=== PATIENT | male | born 1985 | race Caucasian/White ===

== ENCOUNTER 2019-03-09 20:37 | Emergency (ER) | payer OTHER ==
[2019-03-09] MEDS ORDERED: KETOROLAC TROMETHAMINE 30 MG/ML SOL IV ONE (21:13)
[2019-03-09] MEDS ORDERED: SODIUM CHLORIDE 0.9% 1000ML 1,000 ML IV ONE (21:13)
[2019-03-09] MEDS ORDERED: ONDANSETRON HCL 4 MG/2 ML SOL IV ONE (21:13)
[2019-03-09] MEDS ORDERED: KETOROLAC TROMETHAMINE 30 MG/ML SOL ONE (21:21)
[2019-03-09] MEDS ORDERED: ONDANSETRON HCL 4 MG/2 ML SOL ONE (21:21)
[2019-03-09 21:44] LABS: BASOPHILS % (AUTO) 1 % (0-3); EOSINOPHILS % (AUTO) 2 % (0-9); HEMATOCRIT 37 % (39-53); HEMOGLOBIN 12.5 gm/dl (13.5-17.7); LYMPHOCYTES % (AUTO) 20.1 % (10-50); MEAN CORPUSCULAR HEMOGLOBIN 29.9 pg (27.0-32.0); MEAN CORPUSCULAR VOLUME 88 fL (80-100); MONOCYTES % (AUTO) 9.7 % (0-12); NEUTROPHILS % (AUTO) 66.7 % (37-80)
[2019-03-09 21:56] LABS: ALBUMIN 2.9 gm/dl (3.4-5.0); BILIRUBIN,TOTAL 0.3 mg/dl (0.2-1.0); CALCIUM 7.9 mg/dl (8.5-10.1); CARBON DIOXIDE 27.4 mEq/L (21-32); CREATININE 0.9 mg/dl (0.80-1.30); POTASSIUM 3.3 mMol/L (3.5-5.1); TOTAL PROTEIN 7.4 gm/dl (6.4-8.2)
[2019-03-09 22:16] LABS: APPEARANCE,URINE Cloudy; BILIRUBIN,URINE NEGATIVE (NEGATIVE); COLOR,URINE Yellow; GLUCOSE, URINE (UA) NEGATIVE (NEGATIVE); KETONES,URINE NEGATIVE (NEGATIVE); LEUKOCYTE ESTERASE ,URINE 2+ (NEGATIVE); NITRATE,URINE POSITIVE (NEGATIVE); OCCULT BLOOD,URINE TRACE INTACT (NEG-TRACE)
[2019-03-09] MEDS ORDERED: POTASSIUM CHLORIDE 10 MEQ TER PO ONE (22:28)
[2019-03-09 22:36] LABS: BACTERIA 3+ (< 1+); CRYSTALS NEGATIVE (0-3 AVE/HPF); EPITHELIAL CELLS 0-2 (SQUAMOUS); RBC,URINE 0-5 (0-3AV/HPF); WBC,URINE 80-100 (0-5AV/HPF)
[2019-03-09] MEDS ORDERED: POTASSIUM CHLORIDE 10 MEQ TER ONE ×2 (22:41→22:42)
[2019-03-09 22:52] VITALS: RESP 18
[2019-03-09 23:32] VITALS: TEMP 97.9
[2019-03-09 23:47] VITALS: BP 156/97; PULSE 98; O2SAT 99
== END 2019-03-09 23:05 | disposition home or self-care (01) | DRG 103 ==
LOC: ED 20:37
DX: G44.309 Post-traumatic headache, unspecified, not intractable (principal); N30.00 Acute cystitis without hematuria; F07.81 Postconcussional syndrome; E87.6 Hypokalemia; R42 Dizziness and giddiness; E11.9 Type 2 diabetes mellitus without complications; W19.XXXA Unspecified fall, initial encounter
CPT/HCPCS: 70450; 80053; 81001; 85025; 87077; 87088; 87186; 93005; 96365; 96374; 96375; 99284; 99285; J1885; J2405; A9270-GY

== ENCOUNTER 2019-06-10 19:32 | Emergency (ER) | payer OTHER ==
[2019-06-10] MEDS ORDERED: SODIUM CHLORIDE 0.9% 1000ML 1,000 ML IV ONE ×2 (19:42→21:29)
[2019-06-10] MEDS ORDERED: PANTOPRAZOLE SODIUM 40 MG/10 ML PDS IV ONE (19:43)
[2019-06-10] MEDS ORDERED: ONDANSETRON HCL 4 MG/2 ML SOL IV ONE (19:43)
[2019-06-10] MEDS ORDERED: PANTOPRAZOLE SODIUM 40 MG/10 ML PDS ONE (19:52)
[2019-06-10] MEDS ORDERED: ONDANSETRON HCL 4 MG/2 ML SOL ONE (19:52)
[2019-06-10] MEDS: SODIUM CHLORIDE 0.9% FLUSH 10 ML SOL IV PRN ×2 (20:20→23:46)
[2019-06-10] MEDS ORDERED: ACETAMINOPHEN 500 MG 500 MG TAB PO ONE (20:23)
[2019-06-10] MEDS ORDERED: ACETAMINOPHEN 500 MG 500 MG TAB ONE (20:23)
[2019-06-10 20:37] LABS: BASOPHILS % (AUTO) 1 % (0-3); EOSINOPHILS % (AUTO) 0 % (0-9); HEMATOCRIT 37 % (39-53); HEMOGLOBIN 12.6 gm/dl (13.5-17.7); LYMPHOCYTES % (AUTO) 10.6 % (10-50); MEAN CORPUSCULAR HEMOGLOBIN 29.3 pg (27.0-32.0); MEAN CORPUSCULAR HGB CONC 33.9 gm/dl (32.0-36.0); MEAN CORPUSCULAR VOLUME 86 fL (80-100); MONOCYTES % (AUTO) 5.8 % (0-12); NEUTROPHILS % (AUTO) 82.6 % (37-80)
[2019-06-10 20:40] LABS: LACTIC ACID 1.7 mMol/L (0.0-2.0)
[2019-06-10 20:50] LABS: ALBUMIN 3.1 gm/dl (3.4-5.0); CALCIUM 8.4 mg/dl (8.5-10.1); CARBON DIOXIDE 24.8 mEq/L (21-32); CREATININE 0.96 mg/dl (0.80-1.30); POTASSIUM 3.7 mMol/L (3.5-5.1); TOTAL PROTEIN 7.2 gm/dl (6.4-8.2)
[2019-06-10] MEDS ORDERED: MORPHINE SULFATE 10 MG/ML SOL IV ONE ×2 (20:56→21:57)
[2019-06-10] MEDS ORDERED: MORPHINE SULFATE 10 MG/ML SOL ONE ×2 (20:57→22:06)
[2019-06-10 21:41] LABS: APPEARANCE,URINE Clear; BILIRUBIN,URINE NEGATIVE (NEGATIVE); COLOR,URINE Dark yellow; GLUCOSE, URINE (UA) NEGATIVE (NEGATIVE); KETONES,URINE NEGATIVE (NEGATIVE); LEUKOCYTE ESTERASE ,URINE NEGATIVE (NEGATIVE); NITRATE,URINE NEGATIVE (NEGATIVE); OCCULT BLOOD,URINE NEGATIVE (NEG-TRACE); UROBILINOGEN,URINE 0.2 (0.2-1.0 EU)
[2019-06-10 21:54] LABS: BACTERIA 2+ (< 1+); CRYSTALS NEGATIVE (0-3 AVE/HPF); EPITHELIAL CELLS 0-2 (SQUAMOUS); RBC,URINE NEG (0-3AV/HPF); WBC,URINE 0-1 (0-5AV/HPF)
[2019-06-10 23:03] VITALS: O2SAT 96
[2019-06-10] MEDS ORDERED: HYDROMORPHONE 1 MG/ML SYRINGE ONE (23:41)
[2019-06-10 23:56] VITALS: BP 112/72; PULSE 97; RESP 16; TEMP 99.6
[2019-06-11] MEDS ORDERED: HYDROMORPHONE 1 MG/ML SYRINGE IV SCH (09:00)
== END 2019-06-11 00:17 | disposition home or self-care (01) | DRG 386 ==
LOC: ED 19:32
DX: K51.90 Ulcerative colitis, unspecified, without complications (principal); N39.0 Urinary tract infection, site not specified; R11.2 Nausea with vomiting, unspecified; K59.00 Constipation, unspecified; R10.9 Unspecified abdominal pain; E11.9 Type 2 diabetes mellitus without complications; Z79.4 Long term (current) use of insulin; B95.62 Methicillin resistant Staphylococcus aureus infection as the cause of diseases classified elsewhere
CPT/HCPCS: 74177; 80053; 81001; 83605; 85025; 87040; 87077; 87088; 87186; 87205; 96365; 96366; 96374; 96375; 99284; 99291; J2270; J2405; Q9967; J1170

== ENCOUNTER 2019-07-09 20:50 | Emergency (ER) | payer OTHER ==
[2019-07-09] MEDS ORDERED: ALBUTEROL/IPRATROPIUM 1 VIAL SOL INH ONE (21:09)
[2019-07-09] MEDS ORDERED: DOXYCYCLINE 100 MG TAB PO SCH (21:15)
[2019-07-09] MEDS ORDERED: ALBUTEROL/IPRATROPIUM 1 VIAL SOL ONE (21:17)
[2019-07-09] MEDS ORDERED: DOXYCYCLINE 100 MG TAB ONE (21:18)
[2019-07-09 21:33] VITALS: RESP 18
[2019-07-09 21:35] VITALS: TEMP 97.3
[2019-07-09 22:54] VITALS: BP 165/89; PULSE 92; O2SAT 98
== END 2019-07-09 21:46 | disposition home or self-care (01) | DRG 203 ==
LOC: ED 20:50
DX: J20.9 Acute bronchitis, unspecified (principal); J02.9 Acute pharyngitis, unspecified; R06.02 Shortness of breath; E11.9 Type 2 diabetes mellitus without complications
CPT/HCPCS: 99282; 99283; A9270-GY